=== PATIENT | male | born 1960 | race Caucasian/White ===

== ENCOUNTER → 2016-10-21 | Outpatient (CLI) | payer BC ==
[~2016-10-21] MED LIST: ATOR-22 PO; CITA40TA12 PO; FERR1TAB23 PO; LISI-461 PO; PRLSR20 PO
[2016-10-21 12:29] LABS: BASO % 0.8 %; BASO ABS # 0.04 K/uL (0-0.2); EOS % 1.1 %; HEMATOCRIT 33.5 % (42-52); IG% 0.2 %; LYMPH % 23.8 %; LYMPH ABS # 1.27 K/uL (1.2-3.4); MEAN CELL VOLUME 74.3 fL (80-100); MEAN CORPUSCULAR HEMOGLOBIN 22.8 pg (25-34); MEAN CORPUSCULAR HGB CONC 30.7 g/dl (32-36); MEAN PLATELET VOLUME 9.1 fL (7.4-10.4); MONO % 9.9 %; NEUT % 64.2 %; PLATELET COUNT 352 K/uL (130-400); RED BLOOD COUNT 4.51 M/uL (4.7-6.1); WHITE BLOOD COUNT 5.33 K/uL (4.8-10.8)
[2016-10-21 12:39] LABS: ESTIMATED AVERAGE GLUCOSE 120 mg/dl; HA1C FLAG Normal (Normal)
[2016-10-21 12:46] LABS: ALT/SGPT 35 U/L (12-78); AST/SGOT 22 U/L (15-37); BLOOD UREA NITROGEN 19 mg/dl (7-18); BUN/CREATININE RATIO 20.7 (10-20); CARBON DIOXIDE 26 mmol/L (21-32); CHLORIDE 105 mmol/L (98-107); CHOLESTEROL 211 mg/dl (0-200); CREATININE 0.92 mg/dl (0.60-1.40); GLUCOSE 106 mg/dl (70-99); POTASSIUM 4.1 mmol/L (3.5-5.1); SODIUM 137 mmol/L (136-145); TRIGLYCERIDES 405 mg/dl (0-150)
[2016-10-21 12:54] LABS: ALB/GLOB RATIO 1.1 (0.9-2); ALKALINE PHOSPHATASE 71 U/L (45-117); CHOLESTEROL/HDL RATIO 5.6; HDL CHOLESTEROL 38 mg/dl; TOTAL IRON BINDING CAPACITY 494 mcg/dl (250-450)
[2016-10-21 12:58] LABS: COMPLETE YES; OVALOCYTES 1+
[2016-10-21 13:56] LABS: LYME DISEASE AB IGG NEG (NEG)
[2016-10-21 14:00] LABS: LYME DISEASE AB IGM NEG (NEG)
== END | disposition home or self-care (01) ==
LOC: C.LABBFT 08:03
PROVIDERS: ATTEND Internal Medicine
DX: I10 Essential (primary) hypertension (principal); D50.9 Iron deficiency anemia, unspecified; E88.81 Metabolic syndrome and other insulin resistance; A04.8 Other specified bacterial intestinal infections; W57.XXXA Bitten or stung by nonvenomous insect and other nonvenomous arthropods, initial encounter

== ENCOUNTER → 2016-10-22 | Outpatient (CLI) | payer BC ==
--- NOTE | 2016-10-22 09:36 | DIAGNOSTIC IMAGING REPORT ---
CHEST 2 VIEWS ROUTINE CLINICAL HISTORY: Hypertension. Shortness of breath with exertion. Fatigue. COMPARISON STUDY: No previous studies for comparison. FINDINGS: Lung volumes are normal. There is no pneumothorax or pleural effusion. Pulmonary vascularity is normal. Lungs are clear. There is mild to moderate cardiomegaly. IMPRESSION: 1. No acute cardiopulmonary findings. 2. Mild to moderate cardiomegaly. Electronically signed by: Aroldo Mondragon M.D. 10/22/2016 9:34 AM Dictated Date/Time: 10/22/2016 9:33 AM
== END | disposition home or self-care (01) ==
LOC: C.RADBC 09:11
PROVIDERS: ATTEND Internal Medicine
DX: A04.8 Other specified bacterial intestinal infections (principal); E88.81 Metabolic syndrome and other insulin resistance; D50.9 Iron deficiency anemia, unspecified; I10 Essential (primary) hypertension; I51.7 Cardiomegaly

== ENCOUNTER → 2016-10-22 | Outpatient (CLI) | payer BC | END | disposition home or self-care (01) | LOC: C.LABSPEC 12:18 | PROVIDERS: ATTEND Internal Medicine | DX: I10 Essential (primary) hypertension (principal); D50.9 Iron deficiency anemia, unspecified; E88.81 Metabolic syndrome and other insulin resistance; A04.8 Other specified bacterial intestinal infections ==

== ENCOUNTER 2017-01-21 18:48 | Emergency (ER) | payer BC ==
[~2017-01-21] VITALS: Ht 167.6 cm; Wt 106.9 kg
--- NOTE | 2017-01-21 19:34 | DIAGNOSTIC IMAGING REPORT ---
CHEST ONE VIEW PORTABLE CLINICAL HISTORY: Respiratory distress COMPARISON STUDY: 10/22/2016 FINDINGS: The heart is mildly enlarged. There is no failure. There is no focal pulmonary consolidation. There are no pleural effusions.[ IMPRESSION: Stable mild cardiomegaly. No acute findings. Electronically signed by: Mickey Alan M.D. 01/21/2017 7:33 PM Dictated Date/Time: 01/21/2017 7:33 PM
[2017-01-21 19:45] LABS: BASO % 0.1 %; BASO ABS # 0.01 K/uL (0-0.2); HEMATOCRIT 31.6 % (42-52); IG% 0.4 %; LYMPH % 14.8 %; LYMPH ABS # 0.99 K/uL (1.2-3.4); MEAN CORPUSCULAR HEMOGLOBIN 20.2 pg (25-34); MEAN CORPUSCULAR HGB CONC 29.7 g/dl (32-36); MEAN PLATELET VOLUME 7.9 fL (7.4-10.4); MONO % 14.5 %; NEUT % 69.2 %; PLATELET COUNT 307 K/uL (130-400); RED BLOOD COUNT 4.65 M/uL (4.7-6.1); WHITE BLOOD COUNT 6.71 K/uL (4.8-10.8)
[2017-01-21] MEDS ORDERED: CITA40TA12 PO (19:48)
[2017-01-21] MEDS ORDERED: FERR1TAB23 PO (19:48)
[2017-01-21] MEDS ORDERED: PRLSR20 PO (19:48)
[2017-01-21] MEDS ORDERED: LISI-461 PO (19:48)
[2017-01-21] MEDS ORDERED: ATOR-22 PO (19:48)
[2017-01-21 20:03] LABS: PROTHROMBIN TIME (PATIENT) 10.6 SECONDS (9.0-12.0)
[2017-01-21 20:09] VITALS: O2SAT 96
[2017-01-21 20:13] LABS: BUN/CREATININE RATIO 22.7 (10-20); CALCIUM 8.5 mg/dl (8.5-10.1); CREATININE 1.1 mg/dl (0.60-1.40); POTASSIUM 3.6 mmol/L (3.5-5.1)
[2017-01-21 20:20] LABS: COMPLETE YES; MICROCYTOSIS PRESENT; OVALOCYTES 1+
[2017-01-21 20:30] LABS: URINE APPEARANCE CLEAR (CLEAR); URINE BILIRUBIN NEG (NEG); URINE COLOR YELLOW; URINE NITRITE NEG (NEG); URINE SPECIFIC GRAVITY 1.028 (1.000-1.030); UROBILINOGEN NEG (NEG)
[2017-01-21 20:31] LABS: MANUAL MICROSCOPIC REQUIRED? NO; REVIEW REQ? NO
[2017-01-21] MEDS ORDERED: SODIUM CHLORIDE 0.9% 500ML 500 ML IV STA ×2 (20:39→21:41)
--- NOTE | 2017-01-21 21:26 | DIAGNOSTIC IMAGING REPORT ---
CT ANGIOGRAM OF THE CHEST CLINICAL HISTORY: Atypical chest pain and respiratory distress COMPARISON STUDY: Chest x-ray dated 01/21/2017 TECHNIQUE: Following the IV administration of 115 mL of Optiray-320, CT angiogram of the thorax was performed from the thoracic inlet to the lung bases utilizing the pulmonary embolus protocol. Images are reviewed in the axial, sagittal, and coronal planes. IV contrast was administered without complication. MIP imaging was performed. CT DOSE: 704.01 mGy.cm FINDINGS: There is a 9 mm left lobe thyroid nodule. There is borderline esophageal wall thickening. No pathologically enlarged axillary mediastinal or hilar lymph nodes were visualized. There was no evidence of thoracic aortic dilatation. There were no pulmonary artery filling defects to indicate acute pulmonary embolism. No pleural effusions are visualized. There was no evidence of focal pulmonary consolidation. Images are degraded by mild patient motion artifact IMPRESSION: 1. No CT evidence of acute pulmonary embolism 2. No evidence of focal pulmonary consolidation Electronically signed by: Mickey Alan M.D. 01/21/2017 9:25 PM Dictated Date/Time: 01/21/2017 9:21 PM
[2017-01-21] MEDS ORDERED: OPTIRAY 320 IV PRN (21:30)
[2017-01-21] MEDS ORDERED: ASPIRIN 324 MG CHEW PO STA (21:39)
[2017-01-21] MEDS ORDERED: MAGNESIUM HYDROXIDE SUSP 30 ML UDC PO PRN (22:00)
[2017-01-21] MEDS ORDERED: NITROGLYCERIN 0.4 MG SL PER TAB CHARGE SL PRN (22:00)
[2017-01-21] MEDS ORDERED: ZOLPIDEM TARTRATE 5 MG TAB PO PRN (22:00)
[2017-01-21] MEDS ORDERED: POLYETHYLENE (MIRALAX) 17 GM PACK PO PRN (22:00)
[2017-01-21] MEDS ORDERED: ACETAMINOPHEN 325 MG TAB PO PRN (22:00)
[2017-01-21] MEDS ORDERED: ONDANSETRON INJ 2 MG/ML 2 ML VIAL IV PRN (22:00)
[2017-01-21] MEDS ORDERED: ALUMINUM/MAGNESIUM/SIMETH (MAALOX MAX) 30 ML UDC PO PRN (22:00)
[2017-01-21] MEDS ORDERED: MoRPHine SULFATE 2 MG/ML CARP IV PRN (22:00)
[2017-01-21 22:06] VITALS: O2SAT 96; BMI 38.0
[2017-01-21] MEDS ORDERED: IV FLUIDS COMPLETED PRN (23:00)
[2017-01-21 23:40] VITALS: Ht 167.6 cm; Wt 106.9 kg
[2017-01-21 23:58] VITALS: BP 134/65; PULSE 82; TEMP 36.7; O2SAT 97
--- NOTE | 2017-01-22 01:36 | EMERGENCY ROOM VISIT NOTE ---
History Report prepared by Patricio: Jocy Pascual Under the Supervision of: Dr. Arnulfo Felix D.O. First contact with patient: 19:05 Chief Complaint: SHORTNESS OF BREATH Stated Complaint: LACK OF ENERGY,LOSS OF BREATH,NO APPETITE History of Present Illness The patient is a 56 year old male who presents to the Emergency Room with complaints of intermittent shortness of breath beginning 2 days ago. The patient states that he has iron deficiency anemia and has has been dealing with some shortness of breath beginning in September of this year. He reports that he is a runner and normally does not experience difficulty with exertion. However, over the last 2 days he notes that exertion has been making him significantly short of breath and rest improves his symptoms. He complains of a lack of energy , loss of appetite, dyspnea on exertion, diarrhea beginning 3 days ago with 2 episodes today and more earlier in the week, bright red rectal bleeding with most bowel movements which is normal secondary to internal hemorrhoids, and dizziness with exertion. He denies new antibiotics, lightheadedness, chest pain , cough, runny nose, coughing up blood, leg swelling, smoking history, diabetes history, asthma, COPD, blood thinner use, and sore throat. The patient notes that he recently had H-Pylori and notes that he has not been on any antibiotics since 12/04. He reports that he is on Lisinopril for high blood pressure and has high cholesterol. Source of History: patient Onset: 2 days ago Position: other (global) Quality: other (shortness of breath) Timing: intermittent Modifying Factors (Worsening): exertion Modifying Factors (Relieving): rest Associated Symptoms: + diarrhea, No chest pain, No cough Note: He complains of a lack of energy, loss of appetite, dyspnea on exertion, bright red rectal bleeding with most bowel movements which is normal secondary to internal hemorrhoids, and dizziness with exertion. He denies new antibiotics, lightheadedness, runny nose, coughing up blood, leg swelling, smoking history, diabetes history, asthma, COPD, blood thinner use, and sore throat. Review of Systems See HPI for pertinent positives & negatives. A total of 10 systems reviewed and were otherwise negative. Past Medical & Surgical Medical Problems: (1) High cholesterol (2) Hypertension (3) Iron deficiency anemia (4) Shortness of breath Family History No pertinent family history stated. Social History Smoking Status: Never Smoker Marital Status: Housing Status: lives with significant other Occupation Status: employed Current/Historical Medications Scheduled Atorvastatin (Lipitor), 20 MG PO DAILY Citalopram Hydrobromide (Celexa), 40 MG PO DAILY Ferrous Sulfate (Iron), 325 MG PO DAILY Lisinopril (Zestril), 10 MG PO DAILY Omeprazole (Prilosec), 20 MG PO DAILY Allergies Coded Allergies: Amoxicillin (Verified Allergy, Intermediate, Rash, 01/21/17) Clarithromycin (Verified Allergy, Intermediate, Rash, 01/21/17) Niacin (Verified Allergy, Intermediate, Flushin and itchiness, 01/21/17) Physical Exam Vital Signs Date Time Temp Pulse Resp B/P Pulse Ox O2 Delivery O2 Flow Rate FiO2 01/21/17 23:58 36.7 82 12 134/65 97 01/21/17 23:50 82 12 134/65 97 Room Air 01/21/17 23:45 81 22 96 01/21/17 23:40 84 20 97 01/21/17 23:35 85 23 01/21/17 23:30 75 21 01/21/17 23:25 74 19 01/21/17 23:20 75 22 01/21/17 23:15 76 21 01/21/17 23:10 81 22 01/21/17 23:05 89 17 01/21/17 23:00 87 20 01/21/17 22:55 84 22 01/21/17 22:50 85 22 01/21/17 22:45 85 26 01/21/17 22:40 85 22 01/21/17 22:35 86 23 01/21/17 22:30 88 26 01/21/17 22:25 84 21 01/21/17 22:20 87 20 01/21/17 22:15 86 27 01/21/17 22:10 87 01/21/17 22:10 87 24 01/21/17 22:06 96 Room Air 01/21/17 22:05 86 19 01/21/17 22:00 94 18 01/21/17 21:55 89 23 01/21/17 21:50 89 16 01/21/17 21:21 133/87 01/21/17 20:09 96 Room Air 01/21/17 20:09 96 Room Air 01/21/17 19:43 96 Room Air 01/21/17 18:53 36.7 100 18 157/91 97 Room Air Physical Exam GENERAL: sitting up in bed, disheveled, alert, well appearing, well nourished, no distress, non-toxic EYE EXAM: normal conjunctiva OROPHARYNX: no exudate, no erythema, lips, buccal mucosa, and tongue normal and mucous membranes are moist NECK: supple, no nuchal rigidity, no adenopathy, non-tender LUNGS: Clear to auscultation. Normal chest wall mechanics HEART: Tachycardic, no murmurs, S1 normal and S2 normal ABDOMEN: abdomen soft, non-tender, normo-active bowel sounds, no masses, no rebound or guarding. BACK: Back is symmetrical on inspection and there is no deformity, no midline tenderness, no CVA tenderness. SKIN: no rashes and no bruising UPPER EXTREMITIES: upper extremities are grossly normal. LOWER EXTREMITIES: No pitting edema. Calves are equal bilaterally NEURO EXAM: Normal sensorium, cranial nerves II-XII grossly intact, normal speech, no gross weakness of arms, no gross weakness of legs. RECTAL: Heme positive Medical Decision & Procedures ER Provider Diagnostic Interpretation: Radiology results as stated below per my review and the radiologist's interpretation: CHEST ONE VIEW PORTABLE FINDINGS: The heart is mildly enlarged. There is no failure. There is no focal pulmonary consolidation. There are no pleural effusions.[ IMPRESSION: Stable mild cardiomegaly. No acute findings. Electronically signed by: Mickey Alan M.D. 01/21/2017 7:33 PM Dictated Date/Time: 01/21/2017 7:[address] ANGIOGRAM OF THE CHEST CT DOSE: 704.01 mGy.cm FINDINGS: There is a 9 mm left lobe thyroid nodule. There is borderline esophageal wall thickening. No pathologically enlarged axillary mediastinal or hilar lymph nodes were visualized. There was no evidence of thoracic aortic dilatation. There were no pulmonary artery filling defects to indicate acute pulmonary embolism. No pleural effusions are visualized. There was no evidence of focal pulmonary consolidation. Images are degraded by mild patient motion artifact IMPRESSION: 1. No CT evidence of acute pulmonary embolism 2. No evidence of focal pulmonary consolidation Electronically signed by: Mickey Alan M.D. 01/21/2017 9:25 PM Dictated Date/Time: 01/21/2017 9:21 PM Laboratory Results 01/21/17 19:33 Red Blood Count 4.65, Mean Corpuscular Volume 68.0, Mean Corpuscular Hemoglobin 20.2, Mean Corpuscular Hemoglobin Concent 29.7, Mean Platelet Volume 7.9, Neutrophils (%) (Auto) 69.2, Lymphocytes (%) (Auto) 14.8, Monocytes (%) (Auto) 14.5, Eosinophils (%) (Auto) 1.0, Basophils (%) (Auto) 0.1, Neutrophils # (Auto ) 4.64, Lymphocytes # (Auto) 0.99, Monocytes # (Auto) 0.97, Eosinophils # (Auto ) 0.07, Basophils # (Auto) 0.01 01/21/17 19:33 Test 01/21/17 19:33 01/21/17 20:20 01/21/17 23:06 White Blood Count 6.71 K/uL (4.8-10.8) Red Blood Count 4.65 M/uL (4.7-6.1) Hemoglobin 9.4 g/dL (14.0-18.0) Hematocrit 31.6 % (42-52) Mean Corpuscular Volume 68.0 fL (80-100) Mean Corpuscular Hemoglobin 20.2 pg (25-34) Mean Corpuscular Hemoglobin Concent 29.7 g/dl (32-36) Platelet Count 307 K/uL (130-400) Mean Platelet Volume 7.9 fL (7.4-10.4) Neutrophils (%) (Auto) 69.2 % Lymphocytes (%) (Auto) 14.8 % Monocytes (%) (Auto) 14.5 % Eosinophils (%) (Auto) 1.0 % Basophils (%) (Auto) 0.1 % Neutrophils # (Auto) 4.64 K/uL (1.4-6.5) Lymphocytes # (Auto) 0.99 K/uL (1.2-3.4) Monocytes # (Auto) 0.97 K/uL (0.11-0.59) Eosinophils # (Auto) 0.07 K/uL (0-0.5) Basophils # (Auto) 0.01 K/uL (0-0.2) RDW Standard Deviation 44.6 fL (36.4-46.3) RDW Coefficient of Variation 18.0 % (11.5-14.5) Immature Granulocyte % (Auto) 0.4 % Immature Granulocyte # (Auto) 0.03 K/uL (0.00-0.02) Microcytosis PRESENT Ovalocytes 1+ Prothrombin Time 10.6 SECONDS (9.0-12.0) Prothromb Time International Ratio 1.0 (0.9-1.1) Activated Partial Thromboplast Time 26.2 SECONDS (21.0-31.0) Partial Thromboplastin Ratio 1.0 D-Dimer 790 ug/L FEU (0-500) Anion Gap 6.0 mmol/L (3-11) Est Creatinine Clear Calc Drug Dose 83.9 ml/min Estimated GFR () 85.3 Estimated GFR (Non- 73.6 BUN/Creatinine Ratio 22.7 (10-20) Calcium Level 8.5 mg/dl (8.5-10.1) Total Bilirubin 0.3 mg/dl (0.2-1) Aspartate Amino Transf (AST/SGOT) 40 U/L (15-37) Alanine Aminotransferase (ALT/SGPT) 54 U/L (12-78) Alkaline Phosphatase 74 U/L (45-117) Total Protein 7.7 gm/dl (6.4-8.2) Albumin 3.9 gm/dl (3.4-5.0) Globulin 3.8 gm/dl (2.5-4.0) Albumin/Globulin Ratio 1.0 (0.9-2) Hepatitis C Antibody Screen NEG (NEG) Urine Color YELLOW Urine Appearance CLEAR (CLEAR) Urine pH 5.0 (4.5-7.5) Urine Specific [place] 1.028 (1.000-1.030) Urine Protein TRACE (NEG) Urine Glucose (UA) NEG (NEG) Urine Ketones NEG (NEG) Urine Occult Blood NEG (NEG) Urine Nitrite NEG (NEG) Urine Bilirubin NEG (NEG) Urine Urobilinogen NEG (NEG) Urine Leukocyte Esterase NEG (NEG) Urine WBC (Auto) 1-5 /hpf (0-5) Urine RBC (Auto) 0-4 /hpf (0-4) Urine Hyaline Casts (Auto) 1-5 /lpf (0-5) Urine Epithelial Cells (Auto) 10-20 /lpf (0-5) Urine Bacteria (Auto) NEG (NEG) Troponin I 0.026 ng/ml (0-0.045) Laboratory results per my review. Medications Administered Medications (Trade) Dose Ordered Sig/Babak Route Start Time Stop Time Status Last Admin Dose Admin Sodium Chloride (Nss 500ml) 500 ml @ 999 mls/hr Q31M STAT IV 01/21/17 20:39 01/21/17 21:09 DC 01/21/17 20:39 999 MLS/HR Aspirin 324 mg 324 mg NOW STAT PO 01/21/17 21:39 01/21/17 21:40 DC 01/21/17 21:39 324 MG Sodium Chloride (Nss 500ml) 500 ml @ 999 mls/hr Q31M STAT IV 01/21/17 21:41 01/21/17 22:11 DC 01/21/17 21:41 999 MLS/HR ECG Indication: SOB/dyspnea Rate (beats per minute): 102 Rhythm: sinus tachycardia Findings: ST depression (Lateral), other (flipped T waves) Comparison ECG Date: no prior available ED Course ED COURSE: Vital signs were reviewed and showed tachycardia The patients medical record was reviewed The above diagnostic studies were performed and reviewed. ED treatments and interventions as stated above. 1904: The patient was evaluated in room B2. A complete history and physical examination was performed. 2038: Sodium Chloride 500 ml @ 999 mls/hr IV. 2138: Aspirin 324mg PO. 2140: Sodium Chloride 500 ml @ 999 mls/hr IV. 2147: I reevaluated the patient and updated him. He is willing to stay in the hospital. 2155: I reviewed the patient's case with Dr. Lara. He will evaluate the patient for further management. 9: The patient does not want to stay. He is agreeable to having a repeat troponin. 2357: I reevaluated and updated the patient. He would not like to stay. 0006: Upon reevaluation, the patient is hemodynamically stable.I discussed my findings with the patient and he understands and agrees with the treatment plan. Based on the patients age, coexisting illnesses, exam and lab findings the decision to treat as an outpatient was made. The patient remained stable while under my care. The patient appeared well at the time of discharge. Medical Decision Differential diagnoses includes but is not limited to pneumonia, bronchitis, COPD/Asthma exacerbation, pneumothorax, pulmonary embolism, congestive heart failure, acute coronary syndrome Patient is a 56-year-old male who presents the ER for exertional shortness of breath which has significantly worsened over the past 2 days. This has been present since September and has been following with his PCP. He does have a history of hypertension and hyperlipidemia. Has had diarrhea for the past 3 days. He also admits to bright red blood intermittently over the past several months which has been worked up by GI. EKG shows ST depressions in the lateral leads with flipped T waves which was new from his old EKG in September. It did look similar to his old EKG in 2004. Troponin was detectable but not positive. D-dimer was positive inconstantly CT PE was performed. CT PE was negative. Rectal shows faint heme positive stool. Anemia was not 0.5. I did recommend admission and affect patient was admitted the patient changed her mind and preferred to be discharged. I explained the risk and benefits of this. He did allow me to obtain a repeat troponin which was negative but again detectable and slightly elevated from his previous. I explained the risk and this again and he understood and left following informed refusal of care. The patient requested to leave. I considered this to be leaving against medical advice. I personally discussed the following with them. They currently had a medical condition of: ACS and I am concerned that they have ACS or other serious pathology unstable angina even despite negative trop. My proposed course of evaluation and treatment and that of any consultants is: Admission Benefits would include: possible diagnosis or excluding of ACS or an alternative serious condition such as unstable angina, which if identified early would lead to appropriate intervention in a timely manner lessing the burden of disability and . Risks of leaving before this had been completed include: misdiagnosis , worsening illness leading up to and including prolonged or permanent disability or . Specific risks pertinent, but not all inclusive, of their current medical condition include but are not limited to: Congestive heart failure, CT, . Despite this they stated they wanted to leave due to not taking this once his heart and refused further evaluation, treatment, or admission at this time. They appear clinically sober, to be mentating appropriately, free from distracting injury, have controlled pain, appear to have intact insight, judgment, and reason and in my opinion have the capacity to make this decision. Specifically, they were able to verbally state back in a coherent manner their current medical condition/current diagnosis, the proposes course of treatment, and the risks, benefits, and alternatives of treatment versus leaving against medical advice. They understand that they may return to seek medical attention here at whatever time they want. I highly advised them to return to the Emergency Department immediately if they experienced any: Shortness breath or chest pain, reconsidered treatment a/o admission, or had any other concerns. This would be without any repercussions. I recommended they follow-up with PCP within 24 hours for further evaluation and treatment. They were discharged against medical advice Consults Time Called: 2149 Consulting Physician: Dr. Lara - [place] Returned Call: [phone] I reviewed the patient's case with Dr. Lara. RJG will evaluate the patient for further management. Impression Primary Impression: Exertional shortness of breath Additional Impression: Nonspecific ST-T wave electrocardiographic changes Scribe Attestation The scribe's documentation has been prepared under my direction and personally reviewed by me in its entirety. I confirm that the note above accurately reflects all work, treatment, procedures, and medical decision making performed by me. Departure Information Dispostion Home / Self-Care Referrals Kirk Soto M.D. (PCP) Forms HOME CARE DOCUMENTATION FORM, IMPORTANT VISIT INFORMATION Patient Instructions ED Dyspnea Shortness of Breath, My [facility] Additional Instructions Please follow up with your primary care doctor with in the next 24 hours. Any worsening of your symptoms, please return to the ED immediately. This includes recurrence of your chest pain, shortness of breath, passing out, or any other concerning signs or symptoms from your standpoint. Your EKG is changed from your previous in September. You should follow-up with your primary care doctor as state above. Problem Qualifiers
[2017-01-22] MEDS ORDERED: LISINOPRIL 10 MG TAB PO SCH (09:00)
[2017-01-22] MEDS ORDERED: FERROUS SULFATE 325 MG TAB PO SCH (09:00)
[2017-01-22] MEDS ORDERED: CITALOPRAM 40 MG TAB PO SCH (09:00)
[2017-01-22] MEDS ORDERED: ATORVASTATIN 20 MG TAB PO SCH (09:00)
[2017-01-22] MEDS ORDERED: PANTOprazole INJ 40 MG in SYRINGE 0 ML IV SCH (09:00)
== END 2017-01-21 23:58 | disposition home or self-care (01) ==
LOC: CANRESERV → ENRESERVTM → ENRESERVDT → C.EDB 18:49 → CANBEDREQ 01-22 00:57
DX: R06.02 Shortness of breath (principal); R94.31 Abnormal electrocardiogram [ECG] [EKG]; I10 Essential (primary) hypertension; E78.5 Hyperlipidemia, unspecified; E78.00 Pure hypercholesterolemia, unspecified; D50.9 Iron deficiency anemia, unspecified; Z79.899 Other long term (current) drug therapy

== ENCOUNTER → 2017-01-21 | Outpatient (CLI) | payer BC ==
[2017-01-21 12:25] LABS: BASO % 0.2 %; BASO ABS # 0.01 K/uL (0-0.2); EOS % 2.5 %; HEMATOCRIT 33.9 % (42-52); IG% 0.5 %; LYMPH % 13.9 %; LYMPH ABS # 0.78 K/uL (1.2-3.4); MEAN CELL VOLUME 68.9 fL (80-100); MEAN CORPUSCULAR HEMOGLOBIN 20.1 pg (25-34); MEAN CORPUSCULAR HGB CONC 29.2 g/dl (32-36); MEAN PLATELET VOLUME 9.1 fL (7.4-10.4); MONO % 17.1 %; NEUT % 65.8 %; PLATELET COUNT 364 K/uL (130-400); RED BLOOD COUNT 4.92 M/uL (4.7-6.1)
[2017-01-21 12:47] LABS: COMPLETE YES; MICROCYTOSIS PRESENT; OVALOCYTES 1+
== END | disposition home or self-care (01) ==
LOC: C.LABBFT 08:47
PROVIDERS: ATTEND Physician Assistant
DX: D50.9 Iron deficiency anemia, unspecified (principal); A04.8 Other specified bacterial intestinal infections

== ENCOUNTER → 2017-01-23 | Outpatient (CLI) | payer BC ==
[2017-01-23 13:59] LABS: LYME DISEASE AB IGG NEG (NEG); LYME DISEASE AB IGM NEG (NEG)
== END | disposition home or self-care (01) ==
LOC: C.LABBC 11:23
PROVIDERS: ATTEND Physician Assistant Medical
DX: A04.8 Other specified bacterial intestinal infections (principal); W57.XXXA Bitten or stung by nonvenomous insect and other nonvenomous arthropods, initial encounter

== ENCOUNTER → 2017-01-25 | Outpatient (CLI) | payer BC ==
[2017-01-29 14:19] LABS: O&P SOURCE OTHER
== END | disposition home or self-care (01) ==
LOC: C.LABSPEC 12:20
PROVIDERS: ATTEND Physician Assistant Medical
DX: T14.8 Other injury of unspecified body region (principal); W57.XXXA Bitten or stung by nonvenomous insect and other nonvenomous arthropods, initial encounter

== ENCOUNTER → 2017-01-27 | Outpatient (CLI) | payer BC ==
[~2017-01-27] MED LIST changes: +PERFLUTREN LIPID MICROSPHERE (DEFINITY) IV ONE
--- NOTE | 2017-01-27 12:34 | EXERCISE STRESS ECHO ---
*NOTICE TO RECEIVING LIBERTARIAN AGENCY This information is strictly Confidential and protected under [place] law. [place] law prohibits you from making any further disclosure of this information unless further disclosure is expressly permitted by the written consent of the person to whom it pertains or is authorized by law. A general authorization for the release of medical or other information is not sufficient for this purpose. Hospital accepts no responsibility if the information is made available to any other person, INCLUDING THE PATIENT. Interpretation Summary * Name: SHIREEN RING Study Date: 01/27/2017 09:36 AM BP: 126/75 mmHg * Patient Location: [facility] HR: 75 * : 1960 (M/d/yyyy) Gender: Male Height: 66 in * Age: 56 yrs Ethnicity: [place] Weight: 232 lb * Ordering Physician: Kirti Estrada * Referring Physician: Kirti Estrada * Performed By: Bárbara Yanez RDCS * * Reason For Study: Shortness of breath, abnormal EKG * BSA: 2.1 m2 * -- Conclusions -- * Normal stress echocardiogram at 7 METS and a peak heart rate of 90% maximum predicted. * No exercise induced chest pain. * False positive ECG response. * Baseline echo cardiogram notes normal left ventricular systolic function and mild left ventricular hypertrophy. Procedure Details * ECHOEX, CPT #62079 * ECHO DOPPLER, CPT #[id number] * ECHO COLOR FLOW, CPT #[id number] * A contrast injection of Definity was performed to improve assessment of LV function. * Contrast was injected into an intravenous site in the left arm. * One vial of Definity ultrasound contrast was diluted in normal saline to a total volume of 10 ml. A total of '4' ml of solution was administered during imaging. * Lot # [id number] of Definity utilized for procedure. * Expiration date 1 NOV 14. * The attending nurse who injected the contrast agent was Purvi Vences RN. Left Ventricle * The left ventricle is normal in size. * There is mild concentric left ventricular hypertrophy. * Ejection Fraction = 65-70%. * Left ventricular systolic function is normal. * Resting wall motion: Normal. Stress wall motion: Appropriate increase in Left ventricular systolic function and decrease in cavity size. No stress induced segmental wall motion abnormalities. Right Ventricle * The right ventricle is grossly normal size. * The right ventricular systolic function is normal as assessed by tricuspid annular plane systolic excursion (TAPSE) (normal >1.5 cm). Atria * The left atrium is mildly dilated. * Borderline right atrial enlargement. * No ASD detected; PFO is not assessed. Mitral Valve * The mitral valve anatomy is normal. * There is no mitral valve stenosis. * There is mild mitral regurgitation. Tricuspid Valve * The tricuspid valve is not well visualized, but is grossly normal. * There is no tricuspid stenosis. * There is mild tricuspid regurgitation. Aortic Valve * The aortic valve is normal in structure and function. * No hemodynamically significant valvular aortic stenosis. * No aortic regurgitation is present. Pulmonic Valve * The pulmonic valve is not well visualized. Great Vessels * Borderline aortic root dilatation. * Mildly dilated ascending aorta. * The pulmonary is not well visualized. Pericardium * There is no pericardial effusion. Stress Parameters * Normal baseline electrocardiogram. * ECG at peak demonstrated 1-[address] depression in the inferolateral leads which resolved within 1 minute of recovery. * The stress portion of this study was personally supervised by the undersigned interpreting physician. * Rest heart rate was '75' BPM. * Rest blood pressure was '126/75' * Maximum heart rate achieved was 146 bpm. * Maximum heart rate was 90 % of maximum age-predicted heart rate. * Maximum blood pressure was '195/62' * Total exercise time was '5:51' * Maximum exercise MET level achieved was '7.00' METS * Maximum treadmill speed was '2.50' miles per hour. * Maximum treadmill elevation was '12.00'% grade. * Exercise was terminated due to 'achieving target heart rate' MMode 2D Measurements and Calculations IVSd 1.2 cm LVIDd 4.8 cm LVIDs 3.1 cm LVPWd 1.3 cm IVS/LVPW 0.95 FS 35.6 % EDV(Teich) 105.5 ml ESV(Teich) 37.0 ml EF(Teich) 65.0 % EDV(cubed) 108.0 ml ESV(cubed) 28.9 ml EF(cubed) 73.3 % LV mass(C)d 227.4 grams LV mass(C)dI 106.7 grams/m\S\2 SV(Teich) 68.6 ml SI(Teich) 32.2 ml/m\S\2 SV(cubed) 79.1 ml SI(cubed) 37.1 ml/m\S\2 Ao root diam 3.4 cm Ao root area 9.1 cm\S\2 ACS 2.4 cm LA dimension 3.4 cm asc Aorta Diam 3.6 cm LA/Ao 0.99 LVOT diam 2.0 cm LVOT area 3.2 cm\S\2 LVAd ap4 39.7 cm\S\2 LVLd ap4 9.2 cm EDV(MOD-sp4) 137.0 ml EDV(sp4-el) 145.3 ml LVAs ap4 19.8 cm\S\2 LVLs ap4 7.1 cm ESV(MOD-sp4) 44.4 ml ESV(sp4-el) 46.9 ml EF(MOD-sp4) 67.6 % EF(sp4-el) 67.7 % LVAd ap2 36.0 cm\S\2 LVLd ap2 8.8 cm EDV(MOD-sp2) 120.5 ml EDV(sp2-el) 125.1 ml LVAs ap2 18.3 cm\S\2 LVLs ap2 7.4 cm ESV(MOD-sp2) 39.5 ml ESV(sp2-el) 38.4 ml EF(MOD-sp2) 67.2 % EF(sp2-el) 69.3 % LVLd %diff -4.38 % EDV(MOD-bp) 130.2 ml LVLs %diff 3.8 % ESV(MOD-bp) 42.0 ml EF(MOD-bp) 67.7 % SV(MOD-sp4) 92.6 ml SI(MOD-sp4) 43.5 ml/m\S\2 SV(MOD-sp2) 81.0 ml SI(MOD-sp2) 38.0 ml/m\S\2 SV(MOD-bp) 88.2 ml SI(MOD-bp) 41.4 ml/m\S\2 SV(sp4-el) 98.4 ml SI(sp4-el) 46.2 ml/m\S\2 SV(sp2-el) 86.7 ml SI(sp2-el) 40.7 ml/m\S\2 Doppler Measurements and Calculations MV E max hannah 85.9 cm/sec MV A max hannah 60.6 cm/sec MV E/A 1.4 MV dec time 0.31 sec Ao V2 max 182.5 cm/sec Ao max PG 13.3 mmHg Ao max PG (full) 3.2 mmHg BERYL(V,A) 2.8 cm\S\2 BERYL(V,D) 2.8 cm\S\2 LV V1 max PG 10.1 mmHg LV V1 max 159.1 cm/sec PA V2 max 90.9 cm/sec PA max PG 3.3 mmHg PA acc slope 694.5 cm/sec\S\2 PA acc time 0.08 sec TR max hannah 251.9 cm/sec PA pr(Accel) 41.0 mmHg
== END | disposition home or self-care (01) ==
LOC: C.CPL 09:20
PROVIDERS: ATTEND Physician Assistant Medical
DX: R06.09 Other forms of dyspnea (principal); R94.31 Abnormal electrocardiogram [ECG] [EKG]

== ENCOUNTER → 2017-03-12 | Outpatient (CLI) | payer BC ==
[~2017-03-12] MED LIST changes: -PERFLUTREN LIPID MICROSPHERE (DEFINITY) IV ONE
== END | disposition home or self-care (01) ==
LOC: C.PATHSPEC 13:15
PROVIDERS: ATTEND Dermatology
DX: C44.41 Basal cell carcinoma of skin of scalp and neck (principal); C44.319 Basal cell carcinoma of skin of other parts of face

== ENCOUNTER → 2017-03-12 | Day surgery (SDC) | payer BC ==
[2017-03-01 13:20] VITALS: BMI 37.0
[~2017-03-12] VITALS: Ht 167.6 cm; Wt 104.5 kg
[~2017-03-12] MED LIST changes: +LIDOCAINE HCL 2% 2 ML VIAL (20MG/ML) ONE; +PROPOFOL IV EMULSION 10 MG/ML 20 ML VIAL IV ONE; +SODIUM CHLORIDE 0.9% 500ML 500 ML IV ONE
[2017-03-12 12:13] VITALS: Ht 167.6 cm; Wt 104.5 kg
--- NOTE | 2017-03-12 12:58 | Endo History and Physical ---
History & Physical Date of Service: Mar 12, 2017. Chief Complaint: ANEMIA Referring Physician: CHANTALE BAH History of Present Illness 56 yo CM who presents for EGD and Colonoscopy secondary to anemia. Past Surgical History Hx Cardiac Surgery: No Hx Internal Defibrillator: No Hx Pacemaker: No Hx Abdominal Surgery: No Hx of Implantable Prosthesis: No Hx Post-Op Nausea and Vomiting: No Hx Cancer Surgery: No Hx Thoracic Surgery: No Hx Orthopedic: Yes (LEFT KNEE MENISCUS REPAIR) Hx Urinary Tract Surgery: No Family History None Social History Smoking Status: Never Smoker Hx Substance Use: No Hx Alcohol Use: Yes (5 BEERS DAILY) Allergies Coded Allergies: Amoxicillin (Verified Allergy, Intermediate, Rash, 03/12/17) Clarithromycin (Verified Allergy, Intermediate, Rash, 03/12/17) Niacin (Verified Allergy, Intermediate, Flushin and itchiness, 03/12/17) Current Medications Reported Home Medications Medications Dose Route/Sig Max Daily Dose Days Date Category Iron (Ferrous Sulfate) 325 Mg Tab 325 Mg PO BID 01/21/17 Reported Lipitor (Atorvastatin Calcium) 20 Mg Tab 20 Mg PO QAM 01/21/17 Reported Prilosec (Omeprazole) 20 Mg Capcr 20 Mg PO QAM 01/21/17 Reported Zestril (Lisinopril) 10 Mg Tab 10 Mg PO QAM 01/21/17 Reported Celexa (Citalopram Hydrobromide) 40 Mg Tab 40 Mg PO QAM 01/21/17 Reported Vital Signs Weight (Kilograms): 104.55 Height (Feet): 5 Height (Inches): 6 Date Time Temp Pulse Resp B/P (MAP) Pulse Ox O2 Delivery O2 Flow Rate FiO2 03/12/17 12:24 36.8 64 20 119/73 (88) 95 Room Air Physical Exam General Appearance: WD/WN, no apparent distress Respiratory/Chest: Auscultation: breath sounds normal Cardiovascular: Heart Auscultation: RRR Abdomen: Bowel Sounds: normal Inspection & Palpation: soft, non-distended, no tenderness, guarding & rebound Assessment and Plan Assessment: 56 yo CM who presents for EGD and Colonoscopy secondary to anemia. Plan: Proceed with EGD and Colonoscopy.
--- NOTE | 2017-03-12 13:29 | GI REPORT ---
Procedure Date: 03/12/2017 1:11 PM Procedure: Upper GI endoscopy Indications: Iron deficiency anemia Medicines: Monitored Anesthesia Care Complications: No immediate complications. Estimated Blood Loss: Estimated blood loss: none. Procedure: Pre-Anesthesia Assessment: - Prior to the procedure, a History and Physical was performed, and patient medications and allergies were reviewed. The patient's tolerance of previous anesthesia was also reviewed. The risks and benefits of the procedure and the sedation options and risks were discussed with the patient. All questions were answered, and informed consent was obtained. Prior Anticoagulants: The patient has taken no previous anticoagulant or antiplatelet agents. ASA Grade Assessment: II - A patient with mild systemic disease. After reviewing the risks and benefits, the patient was deemed in satisfactory condition to undergo the procedure. After obtaining informed consent, the endoscope was passed under direct vision. Throughout the procedure, the patient's blood pressure, pulse, and oxygen saturations were monitored continuously. The scope was introduced through the mouth, and advanced to the second part of duodenum. The upper GI endoscopy was accomplished without difficulty. The patient tolerated the procedure well. Findings: The esophagus was normal. A small hiatus hernia was present. Localized mild inflammation characterized by erosions and erythema was found in the gastric antrum. Biopsies were taken with a cold forceps for histology. The examined duodenum was normal. Impression: - Normal esophagus. - Small hiatus hernia. - Gastritis. Biopsied. - Normal examined duodenum. Recommendation: - Resume previous diet. - Continue present medications. - Await pathology results. - Return to GI office as previously scheduled. Julio Zuluaga DO 03/12/2017 1:28:40 PM This report has been signed electronically. Note Initiated On: 03/12/2017 1:11 PM I attest to the content of the Intraoperative Record and orders documented therein, exceptions below
--- NOTE | 2017-03-12 13:47 | GI REPORT ---
Procedure Date: 03/12/2017 1:26 PM Procedure: Colonoscopy Indications: Iron deficiency anemia Medicines: Monitored Anesthesia Care Complications: No immediate complications. Estimated Blood Loss: Estimated blood loss: none. Procedure: Pre-Anesthesia Assessment: - Prior to the procedure, a History and Physical was performed, and patient medications and allergies were reviewed. The patient's tolerance of previous anesthesia was also reviewed. The risks and benefits of the procedure and the sedation options and risks were discussed with the patient. All questions were answered, and informed consent was obtained. Prior Anticoagulants: The patient has taken no previous anticoagulant or antiplatelet agents. ASA Grade Assessment: II - A patient with mild systemic disease. After reviewing the risks and benefits, the patient was deemed in satisfactory condition to undergo the procedure. After I obtained informed consent, the scope was passed under direct vision. Throughout the procedure, the patient's blood pressure, pulse, and oxygen saturations were monitored continuously. The Scope was introduced through the anus and advanced to the terminal ileum. The colonoscopy was performed without difficulty. The patient tolerated the procedure well. The quality of the bowel preparation was good. The terminal ileum, ileocecal valve, appendiceal orifice, and rectum were photographed. Findings: A 4 mm polyp was found in the ascending colon. The polyp was sessile. The polyp was removed with a cold snare. Resection and retrieval were complete. Scattered small-mouthed diverticula were found in the entire colon. Non-bleeding internal hemorrhoids were found during retroflexion. The hemorrhoids were small. Impression: - One 4 mm polyp in the ascending colon, removed with a cold snare. Resected and retrieved. - Diverticulosis in the entire examined colon. - Non-bleeding internal hemorrhoids. Recommendation: - Resume previous diet. - Continue present medications. - Repeat colonoscopy for surveillance based on pathology results. - Return to primary care physician as previously scheduled. Julio Zuluaga DO 03/12/2017 1:47:29 PM This report has been signed electronically. Note Initiated On: 03/12/2017 1:26 PM I attest to the content of the Intraoperative Record and orders documented therein, exceptions below
--- NOTE | 2017-03-12 13:49 | Discharge Instructions ---
Endoscopy Patient Instructions Date / Procedure(s) Performed Mar 12, 2017. Colonoscopy, EGD Allergy Information Coded Allergies: Amoxicillin (Verified Allergy, Intermediate, Rash, 03/12/17) Clarithromycin (Verified Allergy, Intermediate, Rash, 03/12/17) Niacin (Verified Allergy, Intermediate, Flushin and itchiness, 03/12/17) Discharge Date / Findings Mar 12, 2017. EGD: Gastritis s/p biopsies, Hiatal hernia Colonoscopy: Colon polyp, Diverticulosis, Internal hemorrhoids Medication Instructions Stopped Medication(s): IRON STOPPED OK to resume all medications today as prescribed. Medications Dose Route/Sig Max Daily Dose Days Date Category Iron (Ferrous Sulfate) 325 Mg Tab 325 Mg PO BID 01/21/17 Reported Lipitor (Atorvastatin Calcium) 20 Mg Tab 20 Mg PO QAM 01/21/17 Reported Prilosec (Omeprazole) 20 Mg Capcr 20 Mg PO QAM 01/21/17 Reported Zestril (Lisinopril) 10 Mg Tab 10 Mg PO QAM 01/21/17 Reported Celexa (Citalopram Hydrobromide) 40 Mg Tab 40 Mg PO QAM 01/21/17 Reported Provider Instructions Activity Restrictions - No exercising or heavy lifting for 24 hours. - Do not drink alcohol the day of the procedure. - Do not drive a car or operate machinery until the day after the procedure. - Do not make any important decisions or sign important papers in 24 hours after the procedure. Following Day: - Return to full activity which may include returning to work/school. Diet Start your diet with liquids and light foods (jello, soup, juice, toast). Then eat your usual diet if not nauseated. Treatment For Common After Affects For mild abdominal pain, bloating, or excessive gas: - Rest - Eat lightly - Lie on right side Follow-Up Information Follow-up with CHANTALE BAH as scheduled Anesthesia Information What You Should Know You have had a procedure that required some medicine to reduce anxiety and discomfort. This treatment is called moderate sedation. After receiving the treatment, you may be sleepy, but you will be able to breathe on your own. The effects of the treatment may last for several hours. Follow these instructions along with Activity/Diet recommendations noted above: * Do NOT do anything where dizziness or clumsiness would be dangerous. * Rest quietly at home today, then you can be up and about tomorrow. * Have a responsible person stay with you the rest of today. * You may have had an I.V. today. If so, you may take the dressing off later today. Recommendations Call your doctor if: * Trouble breathing * Continuous vomiting for more than 24 hours * Temperature above 101 degrees * Severe abdominal pain or bloating * Pain not relieved by pain medicine ordered * There is increased drainage or redness from any incision * A large amount of rectal bleeding greater than 2-3 tablespoons. (If you had a polyp/s removed or have hemorrhoids, a small amount of blood - from the rectum is to be expected.) * You have any unanswered questions or concerns. IN THE EVENT OF A SERIOUS EMERGENCY, GO TO THE NEAREST EMERGENCY ROOM Your discharge instructions were prepared by provider Julio Zuluaga. Patient Instructions Signature Page Ashish Brandt Patient (or Guardian) Signature/Date: I have read and understand the instructions given to me by my caregivers. Caregiver/RN/Doctor Signature/Date: The above-named patient and/or guardian has received patient instructions on this date. + Original Patient Signature Page (only) stays with chart. Please make copy for patient.
--- NOTE | 2017-03-12 13:59 | Anesthesiology Progress Note ---
Anesthesia Post Op Note Date & Time Mar 12, 2017 at 13:58 Vital Signs Pain Intensity: 0 Vital Signs Past 12 Hours Date Time Temp Pulse Resp B/P (MAP) Pulse Ox O2 Delivery O2 Flow Rate FiO2 03/12/17 12:24 36.8 64 20 119/73 (88) 95 Room Air Notes Mental Status: alert / awake / arousable, participated in evaluation Pt Amnestic to Procedure: Yes Nausea / Vomiting: adequately controlled Pain: adequately controlled Airway Patency, RR, SpO2: stable & adequate BP & HR: stable & adequate Hydration State: stable & adequate Anesthetic Complications: no major complications apparent
[2017-03-12 14:24] VITALS: BP 115/90; PULSE 57; O2SAT 98
== END | disposition home or self-care (01) ==
LOC: C.GI 11:39
PROVIDERS: ATTEND Internal Medicine
DX: D12.2 Benign neoplasm of ascending colon (principal); D50.9 Iron deficiency anemia, unspecified; K57.30 Diverticulosis of large intestine without perforation or abscess without bleeding; K64.8 Other hemorrhoids; K29.50 Unspecified chronic gastritis without bleeding; K44.9 Diaphragmatic hernia without obstruction or gangrene; Z79.899 Other long term (current) drug therapy

== ENCOUNTER → 2017-03-17 | Outpatient (CLI) | payer BC ==
[~2017-03-17] MED LIST changes: -LIDOCAINE HCL 2% 2 ML VIAL (20MG/ML) ONE; -PROPOFOL IV EMULSION 10 MG/ML 20 ML VIAL IV ONE; -SODIUM CHLORIDE 0.9% 500ML 500 ML IV ONE
[2017-03-17 17:38] LABS: BASO % 0.8 %; BASO ABS # 0.05 K/uL (0-0.2); EOS % 1.2 %; IG% 0.3 %; LYMPH % 25.4 %; LYMPH ABS # 1.65 K/uL (1.2-3.4); MEAN CELL VOLUME 69.1 fL (80-100); MEAN CORPUSCULAR HEMOGLOBIN 20.1 pg (25-34); MEAN CORPUSCULAR HGB CONC 29.1 g/dl (32-36); MEAN PLATELET VOLUME 8.7 fL (7.4-10.4); MONO % 7.1 %; NEUT % 65.2 %; PLATELET COUNT 420 K/uL (130-400); RED BLOOD COUNT 4.63 M/uL (4.7-6.1)
[2017-03-17 18:00] LABS: ALKALINE PHOSPHATASE 93 U/L (45-117); ALT/SGPT 38 U/L (12-78); AST/SGOT 17 U/L (15-37); BLOOD UREA NITROGEN 17 mg/dl (7-18); BUN/CREATININE RATIO 18.4 (10-20); CALCIUM 8.7 mg/dl (8.5-10.1); CARBON DIOXIDE 24 mmol/L (21-32); CHLORIDE 105 mmol/L (98-107); CREATININE 0.94 mg/dl (0.60-1.40); FERRITIN 3.1 ng/ml (8.0-388.0); GLUCOSE 99 mg/dl (70-99); POTASSIUM 4.2 mmol/L (3.5-5.1); SODIUM 138 mmol/L (136-145); TOTAL IRON BINDING CAPACITY 493 mcg/dl (250-450)
[2017-03-17 18:31] LABS: COMPLETE YES; MICROCYTOSIS PRESENT; OVALOCYTES 1+
[2017-03-18 07:54] LABS: ESTIMATED AVERAGE GLUCOSE 123 mg/dl; HA1C FLAG Normal (Normal)
--- NOTE | 2017-03-22 11:37 | CODING QUERY MEDICAL NECESSITY ---
SUPPORTING DIAGNOSIS NEEDED A supporting diagnosis is required for the test/procedure performed on this patient in order for us to be reimbursed by the patient's insurance. Please provide a supporting diagnosis for the following test/procedure listed below next to the test name along with your signature. *If there is no additional diagnosis for this patient that would support the following test/procedure please document that below next to the test/procedure. Test(s)/Procedure(s) that require a supporting diagnosis: * HEMOGLOBIN A1C DIAGNOSIS: * VITAMIN D, 25-HYDROXY DIAGNOSIS: * VITAMIN B12 DIAGNOSIS: Provider Signature: Date: Thank you Bernadine Henderson [address] [employer] Once completed, please kindly fax back to [phone] For questions please call [phone]
== END | disposition home or self-care (01) ==
LOC: C.LABBFT 11:26
PROVIDERS: ATTEND Internal Medicine
DX: G47.33 Obstructive sleep apnea (adult) (pediatric) (principal); E78.1 Pure hyperglyceridemia; E55.9 Vitamin D deficiency, unspecified; D50.9 Iron deficiency anemia, unspecified

== ENCOUNTER → 2017-03-19 | Outpatient (CLI) | payer BC ==
[2017-03-23 21:33] LABS: GLIADIN DEAMIDATED IgA AB 7 UNITS (<20); GLIADIN DEAMIDATED IgG AB 3 UNITS (<20); RETICULIN IgA AB Negative (Negative)
== END | disposition home or self-care (01) ==
LOC: C.LAB1850 16:26
PROVIDERS: ATTEND Internal Medicine
DX: D50.9 Iron deficiency anemia, unspecified (principal)

== ENCOUNTER → 2017-04-21 | Outpatient (CLI) | payer BC ==
[2017-04-21 14:05] LABS: PROSTATE SPECIFIC ANTIGEN 0.543 ng/ml (0.000-4.000)
== END | disposition home or self-care (01) ==
LOC: C.LABBC 09:52
PROVIDERS: ATTEND Internal Medicine
DX: Z11.59 Encounter for screening for other viral diseases (principal); Z12.5 Encounter for screening for malignant neoplasm of prostate

== ENCOUNTER → 2017-08-13 | Outpatient (CLI) | payer BC ==
[2017-08-13 12:48] LABS: CHOLESTEROL/HDL RATIO 4.6
== END | disposition home or self-care (01) ==
LOC: C.LABBFT 10:49
PROVIDERS: ATTEND Internal Medicine
DX: E78.1 Pure hyperglyceridemia (principal)

== ENCOUNTER → 2017-10-12 | Outpatient (CLI) | payer BC ==
[2017-10-12 16:51] LABS: BASO % 0.3 %; BASO ABS # 0.02 K/uL (0-0.2); EOS ABS # 0.07 K/uL (0-0.5); HEMATOCRIT 35.6 % (42-52); HEMOGLOBIN 11.2 g/dL (14.0-18.0); IG# 0.04 K/uL (0.00-0.02); LYMPH % 24.3 %; LYMPH ABS # 1.73 K/uL (1.2-3.4); MEAN CORPUSCULAR HEMOGLOBIN 26.7 pg (25-34); MEAN CORPUSCULAR HGB CONC 31.5 g/dl (32-36); MEAN PLATELET VOLUME 9.4 fL (7.4-10.4); MONO ABS # 0.57 K/uL (0.11-0.59); NEUT % 65.8 %; PLATELET COUNT 347 K/uL (130-400); RED CELL DISTRIBUTION WIDTH CV 24.1 % (11.5-14.5); RED CELL DISTRIBUTION WIDTH SD 74.8 fL (36.4-46.3); WHITE BLOOD COUNT 7.13 K/uL (4.8-10.8)
== END | disposition home or self-care (01) ==
LOC: C.LABBC 14:00
PROVIDERS: ATTEND Internal Medicine
DX: D64.9 Anemia, unspecified (principal); R68.82 Decreased libido

== ENCOUNTER → 2017-11-22 | Outpatient (CLI) | payer BC ==
[~2017-11-22] MED LIST changes: +OPTIRAY 320 IV PRN
--- NOTE | 2017-11-22 16:58 | DIAGNOSTIC IMAGING REPORT ---
ABDOMEN AND PELVIS CT WITH IV AND ORAL CONTRAST CT DOSE: 922.39 mGy.cm HISTORY: D50.9 Iron deficiency [id number] Hemorrhage of gastrointestinal TECHNIQUE: Multiaxial CT images of the abdomen and pelvis were performed following the use of intravenous and oral contrast. A dose lowering technique was utilized adhering to the principles of ALARA. COMPARISON STUDY: None. FINDINGS: The heart is mildly enlarged. The lung bases are clear. No pneumoperitoneum. No pneumatosis. No suspicious lytic or blastic osseous lesions. Small bilateral fat-containing inguinal hernias. The liver, gallbladder, spleen, adrenal glands, and pancreas are unremarkable. A 1.6 cm cyst within the right kidney. Normal left kidney. No hydronephrosis. No retroperitoneal lymphadenopathy. The bladder is unremarkable. Colonic diverticulosis. No bowel wall thickening or obstruction. Normal appendix. IMPRESSION: 1. No bowel wall thickening or obstruction. 2. Normal appendix. 3. Colonic diverticulosis. 4. A 1.6 cm right renal cyst. 5. Bilateral fat-containing inguinal hernias. Electronically signed by: Malick Corcoran M.D. 11/22/2017 4:57 PM Dictated Date/Time: 11/22/2017 4:48 PM
== END | disposition home or self-care (01) ==
LOC: C.CTS 15:51
PROVIDERS: ATTEND Surgery
DX: D50.9 Iron deficiency anemia, unspecified (principal); K92.2 Gastrointestinal hemorrhage, unspecified; R63.4 Abnormal weight loss; K40.20 Bilateral inguinal hernia, without obstruction or gangrene, not specified as recurrent

== ENCOUNTER → 2017-11-29 | Outpatient (CLI) | payer BC ==
[~2017-11-29] MED LIST changes: -OPTIRAY 320 IV PRN
--- NOTE | 2017-11-29 14:39 | DIAGNOSTIC IMAGING REPORT ---
GI BLEEDING SCAN CLINICAL HISTORY: 56 years-old Male presenting with K92.2 Hemorrhage of gastrointestinal [id number] Bleeding of unknow. TECHNIQUE: Following the IV administration of 24.4 mCi of technetium 99m UltraTag labeled red blood cells, nuclear bleeding scan was performed. Anterior flow images were obtained every 2 seconds for a total 48 seconds. Anterior static images were obtained every 5 minutes for a total of 60 minutes. COMPARISON: CT from 11/22/2017. FINDINGS: Normal radiotracer distribution within the vasculature as well as the liver and spleen. Perfusion of the bilateral kidneys and excretion of radiotracer into the urinary collecting systems. No radiotracer activity in bowel. IMPRESSION: No evidence of gastrointestinal bleed. Electronically signed by: Kirk Zaragoza M.D. 11/29/2017 2:30 PM Dictated Date/Time: 11/29/2017 2:28 PM
== END | disposition home or self-care (01) ==
LOC: C.NUCL 12:05
PROVIDERS: ATTEND Surgery
DX: K92.2 Gastrointestinal hemorrhage, unspecified (principal)

== ENCOUNTER → 2017-12-01 | Outpatient (CLI) | payer BC ==
[2017-12-01 16:47] LABS: BASO % 0.4 %; BASO ABS # 0.03 K/uL (0-0.2); EOS % 0.6 %; EOS ABS # 0.04 K/uL (0-0.5); HEMATOCRIT 36.7 % (42-52); HEMOGLOBIN 11.8 g/dL (14.0-18.0); IG# 0.02 K/uL (0.00-0.02); LYMPH % 20.9 %; LYMPH ABS # 1.52 K/uL (1.2-3.4); MEAN CELL VOLUME 81.6 fL (80-100); MEAN CORPUSCULAR HEMOGLOBIN 26.2 pg (25-34); MEAN CORPUSCULAR HGB CONC 32.2 g/dl (32-36); MEAN PLATELET VOLUME 8.7 fL (7.4-10.4); MONO % 7.7 %; MONO ABS # 0.56 K/uL (0.11-0.59); NEUT % 70.1 %; NEUT ABS # 5.09 K/uL (1.4-6.5); PLATELET COUNT 372 K/uL (130-400); RED CELL DISTRIBUTION WIDTH CV 17.7 % (11.5-14.5); RED CELL DISTRIBUTION WIDTH SD 52.7 fL (36.4-46.3); WHITE BLOOD COUNT 7.26 K/uL (4.8-10.8)
== END | disposition home or self-care (01) ==
LOC: C.LABBC 12:48
PROVIDERS: ATTEND Internal Medicine
DX: D64.9 Anemia, unspecified (principal)